=== PATIENT | male | born 1970 | race Caucasian/White ===

== ENCOUNTER 2022-03-02 08:34 | Day surgery (SDC) | payer OTHER | END 2022-03-02 12:10 | disposition home or self-care (01) | LOC: FASU-ENDO 08:34 | PROVIDERS: ATTEND Internal Medicine Gastroenterology | PROC: 0DJD8ZZ Inspection of Lower Intestinal Tract, Via Natural or Artificial Opening Endoscopic (ICD-10-PCS; principal; 2022-03-02 11:10) | DX: Z12.11 Encounter for screening for malignant neoplasm of colon (principal); K64.1 Second degree hemorrhoids; K64.8 Other hemorrhoids; Z86.010 Personal history of colon polyps ==